=== PATIENT | male | born 1990 | race Caucasian/White ===

== ENCOUNTER 2021-01-09 15:14 | Emergency (ER) | payer BC, SELFPAY ==
--- NOTE | ~2021-01-09 | XR_ITS ---
EXAMINATION: XR ribs RT 2V w CXR 2V EXAM DATE: 01/09/2021 15:49 INDICATION: Initial encounter following injury, with pain of the right chest, mid back. TECHNIQUE: Frontal projection of the upper right ribs, frontal projection of the lower right ribs, ob lique projection of the right ribs, frontal and lateral chest x-ray(s) for interpretation. There is no prior study for comparison. FINDINGS: Possible acute closed posttraumatic right 6th rib fracture posterolaterally. Cardiomediasti nal silhouette is normal. There is no pneumothorax suspected. There are no pleural effusions. IMPRESSION: Possible acute right 6th rib fracture posterolaterally. Reviewed, dictated and finalized at location A.
[2021-01-09 15:16] VITALS: BP 153/97; PULSE 98; RESP 20; TEMP 37.2; O2SAT 100
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
[2021-01-09] MEDS: HYDROcodone/acetaminophen (*CRX) 5-325 MG TABLET 1 TAB PO (16:01)
[2021-01-09] MEDS: TETANUS,DIPHTHERIA,AC PERTUSSIS ADULT (0.5 ML) BOOSTRIX IM (16:02)
[2021-01-09 16:05] VITALS: BP 127/74; PULSE 78; RESP 18; TEMP 36.6; O2SAT 97
[2021-01-09 16:57] VITALS: BP 132/73; PULSE 84; RESP 16; TEMP 36.8; O2SAT 99
== END 2021-01-09 17:05 | disposition home or self-care (01) ==
PROVIDERS: Emergency Provider Emergency Medicine
DX: S22.31XA Fracture of one rib, right side, initial encounter for closed fracture (principal); S90.812A Abrasion, left foot, initial encounter; S20.419A Abrasion of unspecified back wall of thorax, initial encounter; S80.212A Abrasion, left knee, initial encounter; S80.211A Abrasion, right knee, initial encounter; V28.0XXA Motorcycle driver injured in noncollision transport accident in nontraffic accident, initial encounter; Z23 Encounter for immunization
CPT/HCPCS: 71046; 71100; 90471; 90715; 99283; A9270

== ENCOUNTER 2021-10-16 11:18 | Emergency (ER) | payer OTHER, SELFPAY ==
[2021-10-16 11:29] VITALS: BP 147/93; PULSE 67; RESP 16; TEMP 36.3; O2SAT 99
--- NOTE | 2021-10-16 12:16 | ED.GENADULT ---
HPI - General Adult General Chief complaint: Skin/Abscess/Foreign Body Stated complaint: INSECT BITES Source: patient Mode of arrival: ambulatory Limitations: no limitations History of Present Illness HPI narrative: Patient presents for evaluation of pruritic rash for the last 2 weeks. Symptoms started after mowing his lawn. Areas of concern include his arms and legs. Symptoms are worse at night and when eating lunch. He has been applying hydrocortisone cream and Benadryl topically with. Following. No new lotions, soaps, detergents, topical products. No known history of dermatitis 2/2 poison hung/oak/sumac. He did some research on the Internet and is wondering if he has scabies Related Data Allergies Allergy/AdvReac Type Severity Reaction Status Date / Time No Known Allergies Allergy Verified 10/16/21 11:26 Review of Systems Review of Systems: CONSTITUTIONAL: Denies fever, chills, or sweats. EYES: Denies visual changes, redness, or discharge. ENT: Denies rhinorrhea, congestion, sore throat, or otalgia. CARDIOVASCULAR: Denies chest pain, palpitations, or edema. RESPIRATORY: Denies cough or dyspnea. GASTROINTESTINAL: Denies abdominal pain, nausea, vomiting, or diarrhea. GENITOURINARY: Denies dysuria or hematuria. SKIN: Reports pruritic rash to bilateral arms and legs. MUSCULOSKELETAL: Denies back pain, joint pain, or myalgia. NEUROLOGIC: Denies headache, numbness, dizziness, or weakness. PSYCHIATRIC: Denies anxiety or depression. [facility] Past Medical History Medical History (Updated 10/16/21 @ 12:19 by MCKAYLA Villeda, ) No pertinent past medical history Surgical History Surgical History No pertinent past surgical history Family History Family History Mother Osteoporosis Social History Social History Smoking status: Never smoker Alcohol intake: current Alcohol use details: Social Substance use: never Living arrangements: with family Gender identity (if verbalized by the patient): Male Sexual Orientation (if Verbalized by the Patient): Straight or Heterosexual Spiritual care concerns: No Exam Narrative: GENERAL: Well-appearing, well-nourished, and in no acute distress. HEAD: Normocephalic, atraumatic. EYES: PERRLA and EOMI. ENT: Nares clear, no rhinorrhea or epistaxis. Mucous membranes moist. Oropharynx without tonsillar hypertrophy exudate or other lesions. Bilateral TMs pearly jules nonbulging NECK: Supple. No adenopathy or masses. No carotid bruits or JVD CHEST: Clear to auscultation. No respiratory distress. No wheezes rales or rhonchi HEART: Regular rate and rhythm. No murmur heard. Normal peripheral pulses. ABDOMEN: Soft, nontender, nondistended, normal active bowel sounds. EXTREMITIES: Normal range of motion. No edema. SKIN: Scattered healing vesicles to bilateral upper extremities. There are several healing vesicles to the posterior aspect of the left lower leg and a cluster of vesicles which are healing to the posterior aspect of the right lower leg NEURO: No focal deficits. Alert and oriented x3. PSYCH: Normal mood and affect. Course Course Emergency Course: This is a 30-year-old male who presents with complaints of pruritic rash. Believe his symptoms are secondary to exposure to poison hung. Rash seems consistent with that. Advised he bathe using Mary dish soap, apply calamine. Will place on oral prednisone. I do not believe he needs a 2 to 3-week taper as used with typical poison hung. We will place him on 10 day course. We will also give him permethrin as he is concerned about scabies. He does not have symptoms between digits or along waistline. He should follow-up outpatient for further evaluation treatment return for worsening symptoms. Patient agreed with plan of care. Level of Care:
== END 2021-10-16 12:04 | disposition home or self-care (01) ==
PROVIDERS: Emergency Provider Nurse Practitioner
DX: L30.9 Dermatitis, unspecified (principal)
CPT/HCPCS: 99213; G0463

== ENCOUNTER 2022-09-11 10:01 | Emergency (ER) | payer OTHER, SELFPAY ==
--- NOTE | 2022-09-11 10:04 | ED.LOWEXIN ---
HPI - Extremity Injury (Lower) General Chief Complaint: Extremity Injury, Lower Stated Complaint: lt foot/toe pain Time Seen by Provider: 09/11/22 10:21 Source: patient and RN notes reviewed Mode of arrival: ambulatory Limitations: no limitations History of Present Illness HPI Narrative: 31-year-old male presents with concern for pain to the base of the 1st digit of the left foot. Reports the pain started without injury on Monday. He denies fever, aches, chills sweats malaise. He denies any open skin, rash. Reports pain worsens when he moves the for with weight-bearing MD complaint: other (Foot pain) Related Data Allergies Allergy/AdvReac Type Severity Reaction Status Date / Time No Known Allergies Allergy Verified 09/11/22 10:21 Review of Systems Review of Systems: CONSTITUTIONAL: Denies malaise, chills, sweats, or fever. SKIN: Denies rash or itching, open skin, laceration, abrasion, redness, warmth MUSCULOSKELETAL: Reports pain to the 1st digit of the left foot NEUROLOGIC: Denies numbness, weakness All systems reviewed & are unremarkable except as noted in HPI and below PMFSH Past Medical History Medical History (Updated 09/11/22 @ 10:29 by Yohana Lopez NP) No pertinent past medical history Surgical History Surgical History No pertinent past surgical history Family History Family History Mother Osteoporosis Social History Social History Smoking status: Never smoker Alcohol intake: current Alcohol use details: Social Substance use: never Living arrangements: with family Gender identity (if verbalized by the patient): Male Sexual Orientation (if Verbalized by the Patient): Straight or Heterosexual Spiritual care concerns: No Comments At time of signature, agree with nursing past medical, surgical, social and family history. There is no relevant family history pertinent to the presenting complaint Exam Narrative: GENERAL: Well-appearing, well-nourished, and in no acute distress. HEAD: Normocephalic, atraumatic. EYES: PERRLA, conjunctivae clear NECK: Supple. CHEST: Speaks in full sentences. No respiratory distress. HEART: Regular rate and rhythm. Normal and equal peripheral pulses. EXTREMITIES: Left foot and digits have normal strength and sensation, normal range of motion. No edema or ecchymosis. Mild erythema, concentrated the base of the 1st digit left foot. 5/5 strength with digit flexion and extension. Normal sensation with sensitivity to light touch and pain. Tenderness to the base the 1st digit. No open wounds, no skin tenting, no devitalized tissue or atrophy, no trophic changes, no obvious deformity, alignment normal, nearby joints and structures intact. Distal pulses palpable and equal bilaterally, skin warm, dry, pink. Capillary refill less than 3 seconds. SKIN: Warm, dry, no rash. NEURO: Alert and oriented x3. PSYCH: Normal mood and affect Course Course Emergency Course: Discussed with patient diagnosis of gout versus cellulitis, at this time I am more suspicious for gout than cellulitis, there is no induration, significant edema, no open skin. Pain is concentrated to the base of the 1st digit of left foot. Patient was advised that if symptoms change, do not improve or worsen he should be re-evaluated. Patient is aware of diagnosis, understands and agrees to treatment plan. Anticipatory guidance given. Patient agrees to follow-up as directed and is aware of reasons to seek care at the emergency department. Portions of this record may have been created with voice recognition software Level of Care: Express Care Visit Vital Signs Vital signs: Reviewed. MDM - Extremity Injury (Lower) MDM Narrative Medical decision making narrative: Exam findings show no acute concerns or changes; patient
[2022-09-11 10:12] VITALS: BP 156/86; PULSE 90; RESP 16; TEMP 36.6; O2SAT 100
[2022-09-11 10:21] VITALS: BP 156/86; PULSE 90; RESP 16; TEMP 36.6; O2SAT 100
== END 2022-09-11 10:36 | disposition home or self-care (01) ==
PROVIDERS: Emergency Provider Nurse Practitioner; PCP Family Medicine
DX: M10.9 Gout, unspecified (principal)
CPT/HCPCS: 99213; G0463

== ENCOUNTER 2022-09-28 09:14 | Outpatient (CLI) | payer OTHER, SELFPAY ==
[2022-09-28 19:38] LABS: Basophils Percent Auto 0.4 % (0.2-1.2); Eosinophils Absolute Auto 0.2 K/mm3 (0-0.3); Eosinophils Percent Auto 2.9 % (0-4.4); Hematocrit 44.6 % (42.0-52.0); Hemoglobin 15.1 g/dL (14.0-18.0); Immature Granulocyte Absolute 0.01 K/mm3 (0.00-0.031); Immature Granulocyte Percent A 0.2 % (0-0.5); Lymphocytes Absolute Auto 1.38 K/mm3 (0.9-3.2); Lymphocytes Percent Auto 24.8 % (18.3-44.2); Mean Corpuscular HGB Conc 33.9 g/dl (32-36); Mean Corpuscular Hemoglobin 30.9 pg (26-34); Mean Corpuscular Volume 91.2 fl (80-100); Mean Platelet Volume 9.4 fl (7.4-10.4); Monocytes Absolute Auto 0.4 K/mm3 (0.1-0.6); Neutrophils Absolute Auto 3.6 K/mm3 (1.3-6.7); Neutrophils Percent Auto 64.7 % (45.5-73.1); Platelet Count Result 266 k/mm3 (150-375); Red Blood Count 4.89 M/mm3 (4.6-6.20); Red Cell Distribution Width 12.9 % (11.5-14.5); White Blood Count 5.6 K/mm3 (4.5-10.0)
[2022-09-28 19:46] LABS: Alanine Aminotransferase 25 U/L (6-50); Albumin Level 4.6 g/dL (3.5-5.1); Alkaline Phosphatase 56 U/L (38-126); Anion Gap 9 mmol/L (8-16); Aspartate Amino Transferase 19 U/L (17-59); Bilirubin,Total 0.4 mg/dL (0.2-1.3); Blood Urea Nitrogen 21 mg/dL (9-20); Calcium 9.1 mg/dL (8.4-10.2); Carbon Dioxide 26 mmol/L (22-30); Chloride 108 mmol/L (98-107); Cholesterol 183 mg/dL (0-200); Estimated Glomerular Filt Rate > 60; Glucose 99 mg/dL (65-110); HDL Direct 26 mg/dL; Potassium 4.1 mmol/L (3.4-5.0); Sodium 143 mmol/L (137-145); Triglycerides 106 mg/dL (<150); Uric Acid 8.4 mg/dL (3.5-8.5)
[2022-09-28 19:58] LABS: LDL Cholesterol Direct 121 mg/dL
[2022-09-28 20:14] LABS: Thyroid Stimulating Hormone 0.997 uIU/mL (0.465-4.680)
[2022-09-28 21:01] LABS: Hemoglobin A1C 5.1 % (<5.7)
== END 2022-09-28 09:15 | disposition home or self-care (01) ==
LOC: ANHGOSHLAB 09:16
PROVIDERS: PCP Family Medicine; Visit Provider Family Medicine
DX: E66.9 Obesity, unspecified (principal); M10.9 Gout, unspecified
CPT/HCPCS: 36415; 80053; 80061; 83036; 84443; 84550; 85025

== ENCOUNTER 2022-12-01 08:18 | Outpatient (CLI) | payer OTHER, SELFPAY ==
[2022-12-01 19:27] LABS: Anion Gap 4 mmol/L (8-16); Blood Urea Nitrogen 26 mg/dL (9-20); Calcium 8.9 mg/dL (8.4-10.2); Carbon Dioxide 32 mmol/L (22-30); Chloride 104 mmol/L (98-107); Estimated Glomerular Filt Rate > 60; Glucose 104 mg/dL (65-110); Potassium 4.4 mmol/L (3.4-5.0); Sodium 140 mmol/L (137-145); Uric Acid 8.5 mg/dL (3.5-8.5)
== END 2022-12-01 08:19 | disposition home or self-care (01) ==
LOC: ANHGOSHLAB 08:19
PROVIDERS: PCP Family Medicine; Visit Provider Family Medicine
DX: M10.9 Gout, unspecified (principal)
CPT/HCPCS: 36415; 80048; 84550

== ENCOUNTER 2022-12-06 13:47 | Emergency (ER) | payer OTHER, SELFPAY ==
[2022-12-06 13:54] VITALS: BP 140/79; PULSE 74; RESP 16; TEMP 36.8; O2SAT 99
--- NOTE | 2022-12-06 14:03 | ED.SKABFB ---
HPI - Skin/Abscess/Foreign Bdy General Chief complaint: Skin/Abscess/Foreign Body Stated complaint: Abcess/Cyst on back Time Seen by Provider: 12/06/22 14:03 Source: patient and RN notes reviewed Mode of arrival: ambulatory Limitations: dementia History of Present Illness HPI narrative: 32-year-old male presents with concern of for a cyst on his back. Reports he has had a small bump there for a long time that was painless. He reports it started becoming painful of last couple days. His tried to pop it. Reports since then it has become red, tender, swollen. Denies any current drainage. Denies general malaise, fever, sweats. MD complaint: other (Redness) Related Data Allergies Allergy/AdvReac Type Severity Reaction Status Date / Time No Known Allergies Allergy Verified 12/06/22 13:50 Review of Systems Review of Systems: CONSTITUTIONAL: Denies malaise, chills, sweats, or fever. EYES: Denies redness, or discharge. ENT: Denies rhinorrhea, congestion, swollen lips, swollen tongue CARDIOVASCULAR: Denies chest pain, palpitations, or edema. RESPIRATORY: Denies cough or dyspnea. GASTROINTESTINAL: Denies abdominal pain, nausea, vomiting SKIN: Reports of tenderness, redness, swelling on the back. Reports small amount of purulent drainage. Denies vesicles, bullae, numbness, pain beyond proportion MUSCULOSKELETAL: Denies joint pain or myalgia. NEUROLOGIC: Denies headache. All systems reviewed & are unremarkable except as noted in HPI and below PMFSH Past Medical History Medical History (Updated 12/06/22 @ 14:12 by Yohana Lopez NP) No pertinent past medical history Surgical History Surgical History (Updated 09/23/22 @ 16:30 by LISSA Vargas) No pertinent past surgical history Family History Family History Mother Osteoporosis Social History Social History (Updated 09/23/22 @ 15:42 by Karis Dinero MA) Smoking status: Never smoker Alcohol intake: current Alcohol use details: Social Substance use: never Lack of Transportation: No Lack of Food: Never True Current Housing: I Have Housing Concerned About Future Housing: No Difficulty Paying Gas/Electric Bills: No Difficulty Paying for Meds: No Currently Unemployed: No Living arrangements: with family Gender identity (if verbalized by the patient): Male Sexual Orientation (if Verbalized by the Patient): Straight or Heterosexual Spiritual care concerns: No Comments At time of signature, agree with nursing past medical, surgical, social and family history. There is no relevant family history pertinent to the presenting complaint Exam Narrative: GENERAL: Well-appearing, well-nourished, and in no acute distress. HEAD: Normocephalic, atraumatic. EYES: PERRLA, conjunctivae clear ENT: Mucous membranes moist. NECK: Supple. No lymphadenopathy CHEST: Clear to auscultation. No respiratory distress. HEART: Regular rate and rhythm. SKIN: Warm, dry. 5 cm x 4 cm area of erythema, induration, tenderness, warmth with sharp margins noted on the back without fluctuation, scabbed area noted. No vesicles, bullae, necrosis, ecchymosis, crepitus noted. NEURO: Alert and oriented x3. PSYCH: Normal mood and affect Course Course Emergency Course: Patient is aware of diagnosis, understands and agrees to treatment plan. Anticipatory guidance given. Patient agrees to follow-up as directed and is aware of reasons to seek care at the emergency department. Portions of this record may have been created with voice recognition software Level of Care: Express Care Visit Vital Signs Vital signs: Vital Signs Temperature 98.3 F 12/06/22 13:54 Pulse Rate 74 12/06/22 13:54 Respiratory Rate 16 12/06/22 13:54 Blood Pressure 140/79 12/06/22 13:54 Pulse Oximetry 99 12/06/22 13:54 Temperature 98.3 F 12/06/22 13:54 Pulse Rate 74 12/06/22 13:54 Respira
== END 2022-12-06 14:31 | disposition home or self-care (01) ==
PROVIDERS: Emergency Provider Nurse Practitioner; PCP Family Medicine
DX: L03.312 Cellulitis of back [any part except buttock and flank] (principal); M10.9 Gout, unspecified
CPT/HCPCS: 99213; G0463

== ENCOUNTER 2023-03-22 08:04 | Outpatient (CLI) | payer OTHER, SELFPAY ==
[2023-03-22 20:29] LABS: Uric Acid 7.5 mg/dL (3.5-8.5)
== END 2023-03-22 08:05 | disposition home or self-care (01) ==
LOC: ANHGOSHLAB 08:06
PROVIDERS: PCP Family Medicine; Visit Provider Family Medicine
DX: M10.9 Gout, unspecified (principal)
CPT/HCPCS: 36415; 84550

== ENCOUNTER 2023-07-28 08:53 | Outpatient (CLI) | payer OTHER, SELFPAY ==
[2023-07-28 12:12] LABS: Alanine Aminotransferase 25 U/L (6-50); Albumin Level 4.4 g/dL (3.5-5.1); Alkaline Phosphatase 65 U/L (38-126); Anion Gap 5 mmol/L (8-16); Aspartate Amino Transferase 33 U/L (17-59); Bilirubin,Total 0.5 mg/dL (0.2-1.3); Blood Urea Nitrogen 23 mg/dL (9-20); Calcium 9.4 mg/dL (8.4-10.2); Carbon Dioxide 30 mmol/L (22-30); Chloride 105 mmol/L (98-107); Cholesterol 213 mg/dL (0-200); Estimated Glomerular Filt Rate > 60; Glucose 101 mg/dL (65-110); HDL Direct 43 mg/dL; Potassium 4.2 mmol/L (3.4-5.0); Sodium 140 mmol/L (137-145); Triglycerides 118 mg/dL (<150); Uric Acid 7.1 mg/dL (3.5-8.5)
[2023-07-28 12:23] LABS: LDL Cholesterol Direct 129 mg/dL
== END 2023-07-28 08:54 | disposition home or self-care (01) ==
PROVIDERS: PCP Family Medicine; Visit Provider Family Medicine
DX: M1A.0790 Idiopathic chronic gout, unspecified ankle and foot, without tophus (tophi) (principal); E66.9 Obesity, unspecified; Z68.34 Body mass index [BMI] 34.0-34.9, adult
CPT/HCPCS: 36415; 80053; 80061; 84550

== ENCOUNTER 2023-11-03 08:45 | Outpatient (CLI) | payer OTHER, SELFPAY ==
[2023-11-03 14:07] LABS: Uric Acid 5.5 mg/dL (3.5-8.5)
== END 2023-11-03 08:46 | disposition home or self-care (01) ==
LOC: ANHGOSHLAB 08:47
PROVIDERS: PCP Family Medicine; Visit Provider Family Medicine
DX: M1A.0790 Idiopathic chronic gout, unspecified ankle and foot, without tophus (tophi) (principal)
CPT/HCPCS: 36415; 84550

== ENCOUNTER 2024-02-13 14:45 | Outpatient (CLI) | payer OTHER, SELFPAY ==
--- NOTE | ~2024-02-13 | CT_ITS ---
CT scan of the Neck Technique: 2.5 mm axial scans were obtained through the neck after intravenous administration of 75 c c Omnipaque 350. Coronal and sagittal reconstructions of the neck were obtained. Dose reduction techn ique was used on this scan by utilizing automated exposure control and iterative reconstruction techn ique. The dose-length product (DLP) was 424.20 mGy-cm. Clinical History: Sialoadenitis Findings: Mildly prominent bilateral cervical lymph nodes are present, predominantly at level 2, nonspecific.. Parapharyngeal spaces appear normal bilaterally. The parotid and submandibular glands appear normal. The pharyngeal mucosal spaces appear normal. No soft tissue masses are seen in the neck. The thyroid gland appears normal. Images of the lung apices reveal no abnormalities. Impression: Mildly prominent cervical lymph nodes, nonspecific, most likely reactive/inflammatory. No other significant findings. Reviewed, dictated and finalized at [facility]. Impression: Mildly prominent cervical lymph nodes, nonspecific, most likely reactive/inflam matory. No other significant findings.
== END 2024-02-13 14:46 ==
PROVIDERS: PCP Family Medicine; Visit Provider Otolaryngology
DX: K11.20 Sialoadenitis, unspecified (principal)
CPT/HCPCS: 70491; Q9967

== ENCOUNTER 2025-02-07 10:01 | Outpatient (CLI) | payer OTHER, SELFPAY ==
--- OUTSIDE RECORDS SUMMARY | 2025-02-07 10:04 | XMS_ITS | Clinical Summary ---
Author Organization [facility] Address [address] [place] [address] Care Team Providers Care Rn Outpatient Surgery Name Role Phone Alison Liu MD Primary Care Provider + Allergies No known active allergies Medications loratadine (CLARITIN) 10 mg tablet Take 10 mg by mouth daily. Active montelukast (Singulair) 10 mg tabletIndication s:Allergic rhinitis, unspecified seasonality, unspecified trigger Take 1 Tablet (10 mg) by mouth daily at bedtime. 30 Tablet 2 0 Active fluticasone propionate (FLONASE) 50 mcg/spray [place], Suspension nasal inhalerIndicatio ns:Allergic rhinitis, unspecified seasonality, unspecified trigger Administer 2 Sprays in each nostril daily. 16 Gram 1 0 Active Active Problems No known active problems Immunizations Immunization Administration Dates Next Due Influenza Vaccine Quad Split 18 Yrs+ Pf Im 04/05 Family History Medical History Relation Name Comments Hypertension Father Diabetes Maternal Grandfather Osteoporosis Mother Relation Name Status Comments Father Alive Maternal Grandfather Maternal Grandmother Alive Mother Alive Paternal Grandfather Paternal Grandmother Alive Social History Tobacco Use Types Packs/Day Years Used Date Smoking Tobacco: Never Smokeless Tobacco: Never Alcohol Use Standard Drinks/Week Comments Yes 0 (1 standard drink = 0.6 oz pur e alcohol) monthly Sex and Gender Information Value Date Recorded Sex Assigned at Not on file 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 Gender Identity Not on file Sexual Orientation Not on file Last Filed Vital Signs Vital Sign Reading Time Taken Comments Blood Pressure 142/89 04/06/2020 8:28 AM CDT Pulse 72 04/06/2020 8:28 AM CDT Temperature 36.7 C (98.1 F) 04/06/2020 8:28 AM CDT Respiratory Rate 16 04/06/2020 8:28 AM CDT Oxygen Saturation - - Inhaled Oxygen Concentration - - Weight 126.6 kg (279 lb) 04/06/2020 8:28 AM CDT Height 193 cm (6' 4) 04/06/2020 8:28 AM CDT Body Mass Index 33.96 04/06/2020 8:28 AM CDT Plan of Treatment Health Maintenance Due Date Last Done Comments HPV VACCINES (1 - Male 3-dose series) 2004 HEPATITIS B VACCINES (1 of 3 - 19+ 3-dose series) 2008 Preventative Visit- Commercial 07/10/2024 08/31/2018 INFLUENZA VACCINE (#1) 2025 04/06/2020, 2018 DTAP/TDAP/TD VACCINES (2 - Td or Tdap) 07/08/2027 Insurance [facility] BLUE ACCESS/TRUE BLUE PPO Care Teams Rn Outpatient Surgery Relationship Specialty Start Date End Date Alison Liu MD [address] [place] [address] PCP - General Internal Medicine 08/31/18
--- OUTSIDE RECORDS SUMMARY | 2025-02-07 10:04 | XMS_ITS | Clinical Summary ---
Author Organization [facility] Address [address] [place] [address] Care Team Providers Care Calculation Reviewer Name Role Phone Karis Rodriguez MD Primary Care Provider [phone] Source Comments [facility],non-owned Affiliates and Associated Physician Practices is amultiple site organization consisting of ambulatory clinics and hospital sitesin [place], [place], [place] and [place]. This disclosure is being madepursuant to the Care Everywhere program and may not contain all information available regarding this patient. Last updated 18.[facility] Allergies No known active allergies Medications * Be aware that medications may not be up to date on this document. Alwaysverify current medications with the patient. allopurinol (Zyloprim) 300 MG tablet Take 2 (two) tablets by mouth once daily 02/01/2024 Active Active Problems No known active problems Immunizations Immunization Administration Dates Next Due COVID PFIZER 12+YR 30MCG/0.3mL 05/26/2023 COVID PFIZER BIVALENT 12Y+ 30mcg/0.3ML Covid Pfizer primary monoval ent 12+ yr 0.3mL Purple cap 05/07/2021,08/07/2020,07/16/2020 HEP A VACCINE, ADULT 10/24/2017 INFLUENZA VACCINE, CELL CULT URE, QUADR. (FLUCELVAX QUADRIVALENT; 6MO+) (CCIIV4) 05/26/2023 INFLUENZA VACCINE, QUADR. (A FLURIA, FLUZONE QUADRIVALENT; 6MO+) (IIV4) 04/05/2019 INFLUENZA VACCINE, QUADR. (F LUZONE; FLULAVAL; FLUARIX; AFLURIA QUADRIVALENT; 6MO+), 0.5 ML (IIV4) 04/22/2021 TDAP (7yrs+) 07/08/2017 TDAP, HISTORIC VACCINE 09/24/2021,01/09/2021 Family History Medical History Relation Name Comments Diabetes - Type 1 Maternal Grandfather Osteoporosis Mother Relation Name Status Comments Maternal Grandfather Mother Social History Tobacco Use Types Packs/Day Years Used Date Smoking Tobacco: Never Smokeless Tobacco: Never Tobacco Cessation:Counseling Given: Not Answered Alcohol Use Standard Drinks/Week Comments Yes 4 (1 standard drink = 0.6 oz pur e alcohol) Sex and Gender Information Value Date Recorded Sex Assigned at Not on file 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 Gender Identity Not on file Sexual Orientation Not on file Last Filed Vital Signs Vital Sign Reading Time Taken Comments Blood Pressure 148/89 05/09/2024 1:09 PM CDT Pulse 76 05/09/2024 1:09 PM CDT Temperature 36.9 C (98.4 F) 07/08/2017 12:42 PM 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 Respiratory Rate 16 07/08/2017 12:4 2 PM 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 Oxygen Saturation - - Inhaled Oxygen Concentration - - Weight 127.7 kg (281 lb 9.6 oz) 05/09/2024 1:09 PM CDT Height 190.5 cm (6' 3) 05/09/2024 1:09 PM CDT Body Mass Index 35.2 05/09/2024 1:09 PM CDT Plan of Treatment Health Maintenance Due Date Last Done Comments HIV SCREENING 2004 HEPATITIS C SCREENING 11/05/2007 HEPATITIS B VACCINE (1 of 3 - 19+ 3-dose series) 2008 HPV VACCINE (1 - 3-dose SCDM series) 2016 COVID-19 VACCINE ( season) 2024 05/26/2023, 03/18/2022, 05/07/2021, Additional history exists DEPRESSION SCREENING 07/10/2024 INFLUENZA VACCINE (#1) 2025 , 04/22/2021, 04/05/2019 DTAP/TDAP/TD VACCINES (4 - Td or Tdap) 09/25/2031 09/24/2021, 01/09/2021, 07/08/2017 ZOSTER VACCINE (1 of 2) 11/10/2039 HIB VACCINE Aged Out No longer eligi ble based on patient's age to complete this topic MENINGOCOCCAL (Group B) VACCINE SHARED DECISION-MAKING Aged Out No longer eligible based on patient's age to complete this topic MENINGOCOCCAL GROUPS A/C/Y/W VACCINE Aged Out No longer eligible based on patient's age to complete this topic PNEUMOCOCCAL VACCINE Aged Out No long er eligible based on patient's age to complete this topic Insurance AETNA AETNA Care Teams Calculation Reviewer Relationship Specialty Start Date End Date Karis Rodriguez MD [address] [place] [address] PCP - General Family Medicine 04/09/24
[2025-02-07 15:26] LABS: Alanine Aminotransferase 51 U/L (6-50); Albumin Level 4.4 g/dL (3.5-5.1); Alkaline Phosphatase 61 U/L (38-126); Anion Gap 7 mmol/L (4-12); Aspartate Amino Transferase 48 U/L (17-59); Bilirubin,Total 0.4 mg/dL (0.2-1.3); Blood Urea Nitrogen 20 mg/dL (9-20); Calcium 9.6 mg/dL (8.4-10.2); Carbon Dioxide 29 mmol/L (22-30); Chloride 104 mmol/L (98-107); Cholesterol 203 mg/dL (0-200); Estimated Glomerular Filt Rate > 60; Glucose 85 mg/dL (65-110); HDL Direct 45 mg/dL; Potassium 4.0 mmol/L (3.4-5.0); Sodium 140 mmol/L (137-145); Total Protein 7.3 g/dL (6.3-8.2); Triglycerides 106 mg/dL (<150); Uric Acid 4.6 mg/dL (3.5-8.5)
== END 2025-02-07 10:02 | disposition home or self-care (01) ==
LOC: ANHGOSHLAB 10:01
PROVIDERS: PCP Family Medicine; Visit Provider Family Medicine
DX: Z00.00 Encounter for general adult medical examination without abnormal findings (principal); M1A.0790 Idiopathic chronic gout, unspecified ankle and foot, without tophus (tophi)
CPT/HCPCS: 36415; 80053; 80061; 84550